=== PATIENT | female | born 1990 | race Caucasian/White ===

== ENCOUNTER 2016-09-30 13:56 | Emergency (ER) | payer MEDICAID ==
[~2016-09-30] VITALS: Ht 170.2 cm; Wt 100.0 kg
[~2016-09-30 13:56] MED LIST: ALDOMET 250MG250 MG PO; AMOXICILLIN 50500 MG PO; BIRTH CONTROL PO; CARAFATE 1GM1 G PO; MOTRIN 600600 MG/TAB PO; PERCOCET 325 MG1 TA2 PO; PRENATAL1 TA5; PROZAC 10MG10 MG PO; SPRINTEC 35 MCG1 TAB PO; ZOLOFT 100MG100 MG PO
[2016-09-30 13:59] VITALS: BP 131/93; TEMP 98.4
[2016-09-30] MEDS ORDERED: NYSTATIN100000 U/G TOP (14:30)
[2016-09-30 14:35] VITALS: PULSE 82
== END 2016-09-30 14:35 | disposition home or self-care (01) ==
LOC: COL.ER 13:56
DX: B37.2 Candidiasis of skin and nail (principal); F32.9 Major depressive disorder, single episode, unspecified; R25.1 Tremor, unspecified

== ENCOUNTER 2017-06-19 19:20 | Emergency (ER) | payer MEDICAID ==
[~2017-06-19] VITALS: Ht 167.6 cm; Wt 106.8 kg
[~2017-06-19 19:20] MED LIST changes: +NYSTATIN100000 U/G TOP
[2017-06-19 19:25] VITALS: BP 134/77; TEMP 98.1
[2017-06-19 20:15] LABS: BASO % 0.6 % (0.0-2.0); EOS % 0.6 % (0-4.0); GRAN # 3.7 (1.4-6.5); GRAN % 67.5 % (42.2-75.2); HEMATOCRIT 37.9 % (37.0-47.0); LYMPH % 18.7 % (20.0-51.0); MEAN CELL VOLUME 87 fl (80.0-100.0); MEAN CORPUSCULAR HEMOGLOBIN 30 pg (27.0-31.0); MEAN CORPUSCULAR HGB CONC 34 g/dl (33.0-37.0); MEAN PLATELET VOLUME 10.4 fl (7.4-10.4); MONO # 0.7 (0.1-0.6); MONO % 12.2 % (1.7-9.3); PLATELET COUNT 246 K/mm3 (130-400); RED BLOOD COUNT 4.36 M/mm3 (4.10-5.30); REDCELL DISTRIBUTION WIDTH-CV 12.2 % (11.5-14.5)
[2017-06-19 20:31] LABS: ALBUMIN 4.1 gm/dL (3.5-5.0); BILIRUBIN,TOTAL 0.3 mg/dL (0.0-1.0); C-REACTIVE PROTEIN 2.7 mg/dL (0.0-0.9); CALCIUM 8.9 mg/dL (8.4-10.2); CREATININE, serum 0.65 mg/dL (0.52-1.25); POTASSIUM 3.2 mmol/L (3.4-5.0); TOTAL PROTEIN 7.1 gm/dL (6.4-8.2)
[2017-06-19 21:08] LABS: COLLECTION METHOD CLEAN CATCH
[2017-06-19 21:13] LABS: MUCOUS Present /lpf; PH 6 (5-8); URINE APPEARANCE Hazy; URINE BACTERIA Rare /hpf; URINE BILIRUBIN Negative (NEGATIVE); URINE BLOOD Negative (NEGATIVE); URINE COLOR Yellow; URINE GLUCOSE Negative (NEGATIVE); URINE KETONE Negative (NEGATIVE); URINE LEUKOCYTE ESTERASE 1+ (NEGATIVE); URINE NITRATE Negative (NEGATIVE); URINE PROTEIN(semi-quant) Negative (NEGATIVE)
[2017-06-19] MEDS ORDERED: PHENERGAN 25 TA25 MG PO (21:25)
[2017-06-19 21:37] VITALS: PULSE 79
== END 2017-06-19 21:50 | disposition home or self-care (01) ==
LOC: COL.ER 19:20
PROVIDERS: Nurse Practitioner
DX: O21.9 Vomiting of pregnancy, unspecified (principal); Z88.2 Allergy status to sulfonamides; Z3A.08 8 weeks gestation of pregnancy
CPT/HCPCS: J2550; J7030

== ENCOUNTER 2017-11-19 12:07 | Outpatient (CLI) | payer MEDICAID ==
[~2017-11-19] VITALS: Ht 167.6 cm; Wt 114.1 kg
[~2017-11-19 12:07] MED LIST changes: +PHENERGAN 25 TA25 MG PO
[2017-11-19 12:29] VITALS: TEMP 98.6
== END 2017-11-19 12:55 | disposition home or self-care (01) ==
LOC: LDRO 12:07
DX: O99.89 Other specified diseases and conditions complicating pregnancy, childbirth and the puerperium (principal); M54.5 Low back pain; Z3A.30 30 weeks gestation of pregnancy

== ENCOUNTER 2017-12-25 17:57 | Outpatient (CLI) | payer MEDICAID ==
[~2017-12-25] VITALS: Ht 165.1 cm; Wt 116.8 kg
[2017-12-25 18:37] VITALS: BP 115/73; PULSE 122; TEMP 98.7
[2017-12-25] MEDS ORDERED: PRENATAL MVI PO (18:40)
[2017-12-25 18:49] VITALS: BP 127/73; PULSE 102
== END 2017-12-25 19:00 | disposition home or self-care (01) ==
LOC: LDRO 17:57
DX: O42.913 Preterm premature rupture of membranes, unspecified as to length of time between rupture and onset of labor, third trimester (principal); Z3A.35 35 weeks gestation of pregnancy

== ENCOUNTER 2017-12-31 19:45 | Outpatient (CLI) | payer MEDICAID ==
[~2017-12-31] VITALS: Ht 162.6 cm; Wt 115.5 kg
[~2017-12-31 19:45] MED LIST changes: +PRENATAL MVI PO
[2017-12-31 20:55] VITALS: BP 129/73; PULSE 89; TEMP 98
== END 2017-12-31 21:15 | disposition home or self-care (01) ==
LOC: LDRO 19:45 → LDR 20:28 → LDRO 21:15
DX: O62.9 Abnormality of forces of labor, unspecified (principal); Z3A.36 36 weeks gestation of pregnancy
CPT/HCPCS: OP

== ENCOUNTER 2018-01-14 19:25 | Outpatient (CLI) | payer MEDICAID ==
[~2018-01-14] VITALS: Ht 165.1 cm; Wt 116.8 kg
[2018-01-14 20:30] VITALS: BP 130/79; PULSE 91; TEMP 98.4
[2018-01-14 21:03] VITALS: BP 128/69; PULSE 92
== END 2018-01-14 21:15 ==
LOC: LDRO 19:25
DX: O26.893 Other specified pregnancy related conditions, third trimester (principal); Z3A.38 38 weeks gestation of pregnancy

== ENCOUNTER 2018-01-27 07:00 | Inpatient (IN) | payer MEDICAID ==
[2018-01-27] VITALS (28 sets, daily range): BP systolic 117–165; BP diastolic 57–94; PULSE 72–114; TEMP 97.4–98.6
[~2018-01-27] VITALS: Ht 167.6 cm; Wt 115.9 kg
[2018-01-27 08:13] LABS: BASO % 0.4 % (0.0-2.0); EOS % 0.5 % (0-4.0); GRAN # 6.2 (1.4-6.5); GRAN % 77.6 % (42.2-75.2); HEMATOCRIT 34.3 % (37.0-47.0); HEMOGLOBIN 11.8 g/dl (12.5-16.0); LYMPH # 1.1 (1.2-3.4); LYMPH % 14.1 % (20.0-51.0); MEAN CELL VOLUME 86 fl (80.0-100.0); MEAN CORPUSCULAR HEMOGLOBIN 30 pg (27.0-31.0); MEAN CORPUSCULAR HGB CONC 34 g/dl (33.0-37.0); MEAN PLATELET VOLUME 10.2 fl (7.4-10.4); MONO # 0.6 (0.1-0.6); MONO % 6.9 % (1.7-9.3); PLATELET COUNT 261 K/mm3 (130-400); RED BLOOD COUNT 3.99 M/mm3 (4.10-5.30); REDCELL DISTRIBUTION WIDTH-CV 12.7 % (11.5-14.5)
[2018-01-28 07:13] LABS: HEMOGLOBIN 10.3 g/dl (12.5-16.0)
[2018-01-28 07:14] LABS: HEMATOCRIT 30.4 % (37.0-47.0)
[2018-01-28] MEDS ORDERED: PERCOCET 325 MG1 TA2 PO (08:18)
[2018-01-28] MEDS ORDERED: IBU600 MG PO (08:18)
[2018-01-28 09:34] VITALS: BP 123/56; PULSE 74; TEMP 97.8
[2018-01-28 15:47] VITALS: BP 119/75; PULSE 88; TEMP 98.5
[2018-01-28 21:00] VITALS: BP 147/84; PULSE 88; TEMP 97.6
[2018-01-29 08:45] VITALS: BP 122/75; PULSE 78; TEMP 98
== END 2018-01-29 14:20 | disposition home or self-care (01) | DRG 775 ==
LOC: OB 07:00 → LDR 07:00 → OB 14:00
PROVIDERS: Obstetrics & Gynecology
PROC: 10907ZC Drainage of Amniotic Fluid, Therapeutic from Products of Conception, Via Natural or Artificial Opening (ICD-10-PCS; principal; 2018-01-27)
PROC: 10E0XZZ Delivery of Products of Conception, External Approach (ICD-10-PCS; 2018-01-27)
PROC: 3E033VJ Introduction of Other Hormone into Peripheral Vein, Percutaneous Approach (ICD-10-PCS; 2018-01-27)
DX: O99.824 Streptococcus B carrier state complicating childbirth (principal); Z3A.40 40 weeks gestation of pregnancy; Z37.0 Single live birth; O99.214 Obesity complicating childbirth; O99.344 Other mental disorders complicating childbirth; F41.8 Other specified anxiety disorders
CPT/HCPCS: J2540; J2590; J7120

== ENCOUNTER 2020-06-29 19:13 | Emergency (ER) | payer OTHER, MEDICAID ==
[~2020-06-29] VITALS: Ht 162.6 cm; Wt 111.4 kg
[~2020-06-29 19:13] MED LIST changes: +IBU600 MG PO
[2020-06-29 19:18] VITALS: TEMP 97.4
[2020-06-29] MEDS ORDERED: LEXAPRO 10MG10 MG PO (19:39)
[2020-06-29] MEDS ORDERED: ATARAX 25MG25 MG/TAB PO (19:40)
[2020-06-29 19:56] LABS: BASO # 0.1 (0.0-0.2); BASO % 0.8 % (0.0-2.0); EOS # 0.2 (0.0-0.7); EOS % 2.2 % (0-4.0); GRAN # 3.8 (1.4-6.5); GRAN % 49.7 % (42.2-75.2); HEMATOCRIT 41.1 % (37.0-47.0); HEMOGLOBIN 13.7 g/dl (12.5-16.0); LYMPH % 38.9 % (20.0-51.0); MEAN CELL VOLUME 90 fl (80.0-100.0); MEAN CORPUSCULAR HEMOGLOBIN 30 pg (27.0-31.0); MEAN CORPUSCULAR HGB CONC 33 g/dl (33.0-37.0); MEAN PLATELET VOLUME 10.3 fl (7.4-10.4); MONO # 0.6 (0.1-0.6); MONO % 8.1 % (1.7-9.3); PLATELET COUNT 367 K/mm3 (130-400); RED BLOOD COUNT 4.56 M/mm3 (4.10-5.30); REDCELL DISTRIBUTION WIDTH-CV 11.9 % (11.5-14.5)
[2020-06-29 20:05] LABS: ALBUMIN 4.6 gm/dL (3.5-5.0); BILIRUBIN,TOTAL 0.4 mg/dL (0.0-1.0); CALCIUM 9.1 mg/dL (8.4-10.2); CREATININE, serum 0.78 (0.52-1.25)
[2020-06-29 22:40] VITALS: BP 132/70; PULSE 66
== END 2020-06-29 22:40 | disposition home or self-care (01) ==
LOC: COL.ER 19:13
PROVIDERS: Emergency Medicine
DX: M25.512 Pain in left shoulder (principal); R07.89 Other chest pain; M54.9 Dorsalgia, unspecified; Z88.2 Allergy status to sulfonamides

== ENCOUNTER 2021-09-22 19:55 | Emergency (ER) | payer OTHER, MEDICAID ==
[~2021-09-22] VITALS: Ht 165.1 cm; Wt 104.5 kg
[~2021-09-22 19:55] MED LIST changes: +ATARAX 25MG25 MG/TAB PO; +LEXAPRO 10MG10 MG PO
[2021-09-22 20:07] VITALS: BP 117/73; PULSE 104; TEMP 98.4
[2021-09-22 20:25] LABS: COLLECTION METHOD CLEAN CATCH
[2021-09-22 20:42] LABS: MUCOUS Present (NOT PRESENT); PH 6 (5-8); URINE APPEARANCE Cloudy (CLEAR/HAZY); URINE BACTERIA Rare /hpf (NONE SEEN); URINE BILIRUBIN Negative (NEGATIVE); URINE BLOOD 3+ (NEGATIVE); URINE COLOR Yellow (YELLOW); URINE GLUCOSE Negative (NEGATIVE); URINE KETONE Negative (NEGATIVE); URINE LEUKOCYTE ESTERASE 2+ (NEGATIVE); URINE NITRATE Negative (NEGATIVE); URINE PROTEIN(semi-quant) 2+ (NEGATIVE); URINE RBC >50 /hpf (0-2); URINE UROBILINOGEN Negative (NEGATIVE)
[2021-09-22] MEDS ORDERED: CEFTIN 250250 MG/TAB PO (21:21)
== END 2021-09-22 21:47 | disposition home or self-care (01) ==
LOC: COL.ER 19:55
PROVIDERS: Nurse Practitioner
DX: N39.0 Urinary tract infection, site not specified (principal); Z32.02 Encounter for pregnancy test, result negative

== ENCOUNTER 2021-10-29 06:32 | Emergency (ER) | payer OTHER, MEDICAID ==
[~2021-10-29] VITALS: Ht 170.2 cm; Wt 109.1 kg
[~2021-10-29 06:32] MED LIST changes: +CEFTIN 250250 MG/TAB PO
[2021-10-29 06:39] VITALS: BP 113/83; TEMP 98.1
[2021-10-29 07:14] VITALS: PULSE 89
== END 2021-10-29 07:11 | disposition home or self-care (01) ==
LOC: COL.ER 06:32
DX: S61.012A Laceration without foreign body of left thumb without damage to nail, initial encounter (principal); Z23 Encounter for immunization; W26.0XXA Contact with knife, initial encounter

== ENCOUNTER 2022-05-05 20:55 | Emergency (ER) | payer OTHER, MEDICAID ==
[~2022-05-05] VITALS: Ht 170.2 cm; Wt 104.5 kg
[2022-05-05 20:59] VITALS: TEMP 98.4
[2022-05-05 21:32] LABS: COLLECTION METHOD CLEAN CATCH
[2022-05-05 21:35] LABS: BASO # 0.1 K/mm3 (0.0-0.2); BASO % 0.7 % (0.0-2.0); EOS # 0.2 K/mm3 (0.0-0.7); EOS % 1.7 % (0.0-4.0); GRAN # 5.9 K/mm3 (1.4-6.5); GRAN % 58.6 % (42.2-75.2); HEMATOCRIT 40.2 % (37.0-47.0); HEMOGLOBIN 13.5 g/dl (12.5-16.0); LYMPH % 30.2 % (20.0-51.0); MEAN CELL VOLUME 89 fl (80.0-100.0); MEAN CORPUSCULAR HEMOGLOBIN 30 pg (27-31); MEAN CORPUSCULAR HGB CONC 34 g/dl (33.0-37.0); MEAN PLATELET VOLUME 10.1 fl (7.4-10.4); MONO # 0.9 K/mm3 (0.1-0.6); MONO % 8.7 % (1.7-9.3); PLATELET COUNT 335 K/mm3 (130-400); RED BLOOD COUNT 4.54 M/mm3 (4.10-5.30)
[2022-05-05 21:40] LABS: URINE BACTERIA None Seen /hpf (NONE SEEN); URINE RBC 0-2 /hpf (0-2)
[2022-05-05 21:41] LABS: PH 6.5 (5.0-8.5); URINE APPEARANCE Clear (CLEAR/HAZY); URINE BLOOD Negative (NEGATIVE); URINE COLOR Yellow (YELLOW); URINE GLUCOSE Negative (NEGATIVE); URINE KETONE Negative (NEGATIVE); URINE NITRATE Negative (NEGATIVE); URINE PROTEIN(semi-quant) Negative (NEGATIVE); URINE UROBILINOGEN 0.2 E.U/dL (0.2-1.0)
[2022-05-05 21:54] LABS: ALBUMIN 4.1 gm/dL (3.5-5.0); BILIRUBIN,TOTAL 0.3 mg/dL (0.2-1.2); CALCIUM 9.4 mg/dL (8.4-10.2); CREATININE, serum 0.82 mg/dL (0.57-1.11); POTASSIUM 3.9 mmol/L (3.5-4.5); TOTAL PROTEIN 7.7 gm/dL (6.2-8.1)
[2022-05-05] MEDS ORDERED: PRILOSEC 20MG20 MG PO (22:59)
[2022-05-05 23:12] VITALS: BP 129/73; PULSE 85
== END 2022-05-05 23:18 | disposition home or self-care (01) ==
LOC: COL.ER 20:55
PROVIDERS: Emergency Medicine
DX: K80.20 Calculus of gallbladder without cholecystitis without obstruction (principal); Z32.02 Encounter for pregnancy test, result negative
CPT/HCPCS: J7030; Q9967

== ENCOUNTER 2022-06-15 18:25 | Emergency (ER) | payer OTHER, MEDICAID ==
[~2022-06-15] VITALS: Ht 167.6 cm; Wt 104.5 kg
[~2022-06-15 18:25] MED LIST changes: +PRILOSEC 20MG20 MG PO
[2022-06-15 18:29] VITALS: BP 135/92; TEMP 97.6
[2022-06-15] MEDS ORDERED: OMNICEF 300MG300 MG PO (19:07)
[2022-06-15 19:15] VITALS: PULSE 76
== END 2022-06-15 19:16 | disposition home or self-care (01) ==
LOC: COL.ER 18:25
DX: J01.90 Acute sinusitis, unspecified (principal); B96.89 Other specified bacterial agents as the cause of diseases classified elsewhere; J20.9 Acute bronchitis, unspecified; Z88.1 Allergy status to other antibiotic agents; Z88.2 Allergy status to sulfonamides

== ENCOUNTER 2023-10-13 08:55 | Outpatient (RCR) | payer OTHER, MEDICAID ==
[~2023-10-13 08:55] MED LIST changes: +OMNICEF 300MG300 MG PO
== END 2023-11-01 | disposition home or self-care (01) ==
LOC: WSST
DX: R49.0 Dysphonia (principal)

== ENCOUNTER 2023-11-11 09:10 | Outpatient (RCR) | payer OTHER, MEDICAID | END 2023-12-02 | disposition home or self-care (01) | LOC: WSST | DX: R49.0 Dysphonia (principal) ==

== ENCOUNTER 2023-12-29 08:00 | Outpatient (RCR) | payer OTHER, MEDICAID | END 2024-01-02 | disposition home or self-care (01) | LOC: WSST | DX: R49.0 Dysphonia (principal) ==

== ENCOUNTER 2024-01-29 11:00 | Outpatient (RCR) | payer OTHER, MEDICAID | END 2024-02-01 | disposition home or self-care (01) | LOC: WSST | DX: R49.0 Dysphonia (principal) ==